=== PATIENT | female | born 1985 | race African-American/Black ===

== ENCOUNTER 2017-05-31 22:03 | Emergency (ER) | payer OTHER ==
[~2017-05-31] VITALS: Ht 160 cm; Wt 144.5 kg
[2017-05-31 22:04] VITALS: BP 131/82; PULSE 102; RESP 18; TEMP 98.1; O2SAT 100
--- NOTE | 2017-05-31 23:23 | PD ---
HPI Chief Complaint: Abdominal Pain Time Seen by Provider: 23:20 Travel History International Travel<30 days: No Contact w/Intl Traveler<30days: No Traveled to known affect area: No History of Present Illness HPI 31-year-old female patient presents to the ER today for a few days history of abdominal discomfort, nausea, states that she felt bloated, was trying to have a bowel movement today but got interrupted and feels like there is more pain there now. She had complained of an 8 out of 10 pain in the right upper quadrant. She denies any diarrhea, fevers, but states that she has also been having wheezing intermittently and some shortness of breath intermittently. She also noted that she had a lump on her right breast that she just noticed last week. It is nontender. Modifying Factors: None Associated Signs & Symptoms: Abdominal pain, wheezing, right breast lump Risk Factors: None PFSH Past Medical History Respiratory: Yes (asthma) ?: Unknown LMP: 04/15/17 Social History Tobacco Use: No Allergies-Medications (Allergen,Severity, Reaction): Coded Allergies: acetaminophen (Verified Allergy, Unknown, Nausea/Vomiting, 05/31/17) ibuprofen (Verified Allergy, Unknown, Nausea/Vomiting, 05/31/17) oxycodone (Verified Allergy, Unknown, Nausea/Vomiting, 05/31/17) Reported Meds & Prescriptions Reported Meds & Active Scripts Active No Active Prescriptions or Reported Medications Review of Systems Except as stated in HPI: all other systems reviewed are Neg Physical Exam Narrative GENERAL: Well-developed obese young -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 SKIN: Focused skin assessment warm/dry. HEAD: Atraumatic. Normocephalic. EYES: Pupils equal and round. No scleral icterus. No injection or drainage. ENT: No nasal bleeding or discharge. Mucous membranes pink and moist. NECK: Trachea midline. No JVD. Supple. CARDIOVASCULAR: Regular rate and rhythm. No murmur appreciated. RESPIRATORY: No accessory muscle use. Clear to auscultation. Breath sounds equal bilaterally. Right breast: On palpation, there is notable 5 persisted change of the breast and patient points to a area at the 2 o'clock position on the right nipple where she felt a lump. I am not able to palpate an obvious cyst or or firm nodule. GASTROINTESTINAL: Abdomen soft, obese, non-tender, nondistended. Hepatic and splenic margins not palpable. MUSCULOSKELETAL: No obvious deformities. No clubbing. No cyanosis. No edema. NEUROLOGICAL: Awake and alert. No obvious cranial nerve deficits. Motor grossly within normal limits. Normal speech. PSYCHIATRIC: Appropriate mood and affect; insight and judgment normal. Data Data Last Documented VS Vital Signs Date Time Temp Pulse Resp B/P (MAP) Pulse Ox O2 Delivery O2 Flow Rate FiO2 05/31/17 22:04 98.1 102 18 131/82 (98) 100 Room Air Orders Orders Complete Blood Count With Diff (05/31/17 23:20) Comprehensive Metabolic Panel (05/31/17 23:20) Lipase (05/31/17 23:20) Urinalysis - C+S If Indicated (05/31/17 23:20) Abdomen, Flat & Upright (05/31/17 ) Iv Access Insert/Monitor (05/31/17 23:20) Ecg Monitoring (05/31/17 23:20) Oximetry (05/31/17 23:20) Sodium Chloride 0.9% Flush (Ns Flush) (05/31/17 23:30) Chest, Single Ap (05/31/17 23:20) Ed Urine Pregnancytest Poc (05/31/17 23:20) Urine Culture (06/01/17 00:12) Labs Laboratory Tests Test 05/31/17 23:37 06/01/17 00:12 White Blood Count 11.4 TH/MM3 Red Blood Count 4.29 MIL/MM3 Hemoglobin 10.1 GM/DL Hematocrit 30.9 % Mean Corpuscular Volume 71.9 FL Mean Corpuscular Hemoglobin 23.6 PG Mean Corpuscular Hemoglobin Concent 32.8 % Red Cell Distribution Width 16.1 % Platelet Count 355 TH/MM3 Mean Platelet Volume 9.0 FL Neutrophils (%) (Auto) 66.9 % Lymphocytes (%) (Auto) 21.3 % Monocytes (%) (Auto) 8.3 % Eosinophils (%) (Auto) 2.8 % Basophils (%) (Auto) 0.7 % Neutrophils # (Auto) 7.6 TH/MM3 Lymphocytes # (Auto) 2.4 TH/MM3 Monocytes # (Auto) 0.9 TH/MM3 Eosinophils # (Auto) 0.3 TH/MM3 Basophils # (Auto) 0.1 TH/MM3 CBC Comment DIFF FINAL Differential Comment Blood Urea Nitrogen 12 MG/DL Creatinine 0.77 MG/DL Random Glucose 103 MG/DL Total Protein 8.4 GM/DL Albumin 3.4 GM/DL Calcium Level 9.0 MG/DL Alkaline Phosphatase 63 U/L Aspartate Amino Transf (AST/SGOT) 22 U/L Alanine Aminotransferase (ALT/SGPT) 24 U/L Total Bilirubin 0.1 MG/DL Sodium Level 139 MEQ/L Potassium Level 3.4 MEQ/L Chloride Level 103 MEQ/L Carbon Dioxide Level 28.8 MEQ/L Anion Gap 7 MEQ/L Estimat Glomerular Filtration Rate 87 ML/MIN Lipase 134 U/L Urine Color YELLOW Urine Turbidity HAZY Urine pH 5.5 Urine Specific Gore 1.025 Urine Protein TRACE mg/dL Urine Glucose (UA) NEG mg/dL Urine Ketones TRACE mg/dL Urine Occult Blood NEG Urine Nitrite POS Urine Bilirubin NEG Urine Urobilinogen LESS THAN 2.0 MG/DL Urine Leukocyte Esterase MOD Urine WBC 44 /hpf Urine Squamous Epithelial Cells 12 /hpf Urine Bacteria OCC /hpf Urine Mucus MANY /lpf Microscopic Urinalysis Comment CULTURE INDICATED [facility] Medical Decision Making Medical Screen Exam Complete: Yes Emergency Medical Condition: Yes Medical Record Reviewed: Yes Interpretation(s) Laboratory Tests Test 05/31/17 23:37 06/01/17 00:12 White Blood Count 11.4 TH/MM3 (4.0-11.0) Hemoglobin 10.1 GM/DL (11.6-15.3) Hematocrit 30.9 % (35.0-46.0) Mean Corpuscular Volume 71.9 FL (80.0-100.0) Mean Corpuscular Hemoglobin 23.6 PG (27.0-34.0) Monocytes (%) (Auto) 8.3 % (0.0-8.0) Total Protein 8.4 GM/DL (6.4-8.2) Total Bilirubin 0.1 MG/DL (0.2-1.0) Potassium Level 3.4 MEQ/L (3.5-5.1) Estimat Glomerular Filtration Rate 87 ML/MIN (>89) Urine Turbidity HAZY (CLEAR) Urine Ketones TRACE mg/dL (NEG) Urine Nitrite POS (NEG) Urine Leukocyte Esterase MOD (NEG) Urine WBC 44 /hpf (0-5) Urine Bacteria OCC /hpf (NONE) Urine Mucus MANY /lpf (OCC) Differential Diagnosis Bronchitis versus viral syndrome versus URI versus gastritis versus gastroenteritis versus cholecystitis Narrative Course Patient is not . Abdomen is fairly benign. Lab work does show significant UTI. On evaluation of the right breast, I'm not able to palpate any obvious cystic mass or any abscess. At this point, it is uncertain what is causing the feeling that there is a lump on the breast. However, I have referred her to follow-up with primary care physician for further evaluation at this issue which does not seem to be an acute emergency. My plan would be to treat her UTI. Return for any worsening in symptoms as needed. The plan has discussed with her and she states understanding. Diagnosis Primary Impression: Abdominal pain Additional Impressions: Breast lump UTI (urinary tract infection) Additional Instructions: Follow-up with your primary care physician regarding the right breast lump. Take medications as prescribed for your urinary tract infection. Return for worsening in symptoms as necessary. Med/Other Pt SpecificInfo: Prescription(s) given Scripts Nitrofurantoin Monohydrate Macrocrystals (Macrobid) 100 Mg Cap 100 MG PO BID for Infection for 7 Days, #14 CAP 0 Refills Prov: Don Giang MD 06/01/17 Disposition: 01 DISCHARGE HOME Condition: Stable Don Giang MD May 31, 2017 23:23
[2017-05-31] MEDS ORDERED: SODIUM CHLORIDE 0.9% FLUSH 10 ML FLUSH IV FLUSH PRN (23:30)
[2017-05-31 23:54] LABS: AUTOMATED NEUTROPHIL # 7.6 TH/MM3 (1.8-7.7); BASOPHIL # 0.1 TH/MM3 (0-0.2); BASOPHIL % 0.7 % (0.0-2.0); EOSINOPHIL # 0.3 TH/MM3 (0-0.4); EOSINOPHIL % 2.8 % (0.0-4.0); HEMATOCRIT 30.9 % (35.0-46.0); HEMOGLOBIN 10.1 GM/DL (11.6-15.3); LYMPH % 21.3 % (9.0-44.0); LYMPHOCYTE # 2.4 TH/MM3 (1.0-4.8); MEAN CELL VOLUME 71.9 FL (80.0-100.0); MEAN CORPUSCULAR HEMOGLOBIN 23.6 PG (27.0-34.0); MEAN CORPUSCULAR HGB CONC 32.8 % (32.0-36.0); MONO % 8.3 % (0.0-8.0); MONOCYTE # 0.9 TH/MM3 (0-0.9); NEUT % 66.9 % (16.0-70.0); PLATELET COUNT 355 TH/MM3 (150-450); RED BLOOD COUNT 4.29 MIL/MM3 (4.00-5.30); RED CELL DISTRIBUTION WIDTH 16.1 % (11.6-17.2); WHITE BLOOD COUNT 11.4 TH/MM3 (4.0-11.0)
--- NOTE | 2017-06-01 00:04 | RADRPT ---
EXAM DATE/TIME: 05/31/2017 23:38 [facility] COMPARISON: No previous studies available for comparison. INDICATIONS : Abdominal pain in the lower right quadrant. MEDICAL HISTORY : Asthma. SURGICAL HISTORY : Tubal ligation. ENCOUNTER: Initial ACUITY: 2 weeks PAIN SCORE: 8/10 LOCATION: Right lower quadrant abdomen FINDINGS: Supine and upright views of the abdomen were performed. The abdominal bowel gas pattern is normal. There are rounded calcifications seen in the lateral right abdomen. No air fluid levels are seen. Th e visualized lower lungs are clear. No evidence of free intraperitoneal gas. The osseous structures are unremarkable. CONCLUSION: 1. Bowel gas pattern is normal. 2. Rounded areas of calcification in the right lateral abdomen likely related to gallstones. Nicholas Balck MD on May 31, 2017 at 23:59 Board Certified Radiologist. This report was verified electronically.
--- NOTE | 2017-06-01 00:04 | RADRPT ---
EXAM DATE/TIME: 05/31/2017 23:37 [facility] COMPARISON: No previous studies available for comparison. INDICATIONS : Free air. MEDICAL HISTORY : Asthma. SURGICAL HISTORY : Tubal ligation. ENCOUNTER: Initial ACUITY: 2 weeks PAIN SCORE: 8/10 LOCATION: Bilateral chest FINDINGS: A single view of the chest demonstrates the lungs to be symmetrically aerated without evidence of mas s, infiltrate or effusion. The cardiomediastinal contours are unremarkable. Osseous structures are intact. CONCLUSION: No acute disease. Nicholas Black MD on June 01, 2017 at 0:02 Board Certified Radiologist. This report was verified electronically.
[2017-06-01 00:14] LABS: ALKALINE PHOSPHATASE 63 U/L (45-117); TOTAL BILIRUBIN ADULT 0.1 MG/DL (0.2-1.0); TOTAL PROTEIN 8.4 GM/DL (6.4-8.2)
[2017-06-01 00:28] LABS: ALBUMIN 3.4 GM/DL (3.4-5.0); ALT (GPT) 24 U/L (10-53); AST (GOT) 22 U/L (15-37); BICARBONATE 28.8 MEQ/L (21.0-32.0); BLOOD UREA NITROGEN 12 MG/DL (7-18); CHLORIDE 103 MEQ/L (98-107); CREATININE 0.77 MG/DL (0.50-1.00); GLOMERULAR FILTRATION RATE 87 ML/MIN (>89); GLUCOSE,RANDOM 103 MG/DL (74-106); LIPASE 134 U/L (73-393); SODIUM (NA) 139 MEQ/L (136-145)
[2017-06-01 00:30] VITALS: BP 127/75; PULSE 94; RESP 18; O2SAT 97
[2017-06-01 01:27] LABS: BACTERIA, URINE OCC /hpf; BILIRUBIN, URINE NEG (NEG); BLOOD, URINE NEG (NEG); GLUCOSE,URINE NEG (NEG); KETONE, URINE TRACE mg/dL (NEG); MUCUS URINE MANY /lpf (OCC); NITRITE,URINE POS (NEG); PH, URINE 5.5 (5.0-8.5); SQUAMOUS EPITHELIAL CELL URINE 12 /hpf (0-5); URINE COLOR YELLOW (YELLW/STRAW); URINE LEUKOCYTE ESTERASE MOD (NEG)
[2017-06-01] MEDS ORDERED: MACR100C2 PO (02:02)
== END 2017-06-01 02:10 | disposition home or self-care (01) ==
LOC: NEPC 22:03
DX: N39.0 Urinary tract infection, site not specified (principal); B96.20 Unspecified Escherichia coli [E. coli] as the cause of diseases classified elsewhere; N63.10 Unspecified lump in the right breast, unspecified quadrant
CPT/HCPCS: 71045; 74019; 80053; 81001; 83690; 84703; 85025; 87077; 87086; 87186; 99284